=== PATIENT | female | born 1990 | race Caucasian/White ===

== ENCOUNTER 2022-08-15 10:16 | Emergency (ER) | payer OTHER ==
[~2022-08-15] VITALS: Ht 170.2 cm; Wt 59.0 kg
[2022-08-15] MEDS ORDERED: PEPCID AC20 MG PO (10:43)
[2022-08-15] MEDS ORDERED: DUI500 PO (10:43)
== END 2022-08-15 10:56 | disposition home or self-care (01) ==
LOC: ER 10:16
DX: L03.116 Cellulitis of left lower limb (principal)

== ENCOUNTER 2023-01-10 14:39 | Emergency (ER) | payer OTHER ==
[~2023-01-10] VITALS: Ht 167.6 cm; Wt 63.5 kg
[~2023-01-10 14:39] MED LIST: DUI500 PO; PEPCID AC20 MG PO
== END 2023-01-10 16:59 | disposition home or self-care (01) ==
LOC: ER 14:40
DX: R21 Rash and other nonspecific skin eruption (principal); L03.317 Cellulitis of buttock; Z91.018 Allergy to other foods

== ENCOUNTER 2023-10-25 17:30 | Emergency (ER) | payer OTHER ==
[~2023-10-25] VITALS: Ht 170.2 cm; Wt 63.5 kg
== END 2023-10-25 22:57 | disposition left against medical advice (07) ==
LOC: ER 17:31
DX: R68.84 Jaw pain (principal); Z88.8 Allergy status to other drugs, medicaments and biological substances

== ENCOUNTER 2024-04-06 08:09 | Outpatient (CLI) | payer OTHER | END 2024-04-06 08:17 | disposition home or self-care (01) | LOC: SONOGRAMA 08:09 | PROVIDERS: ATTEND General Practice | DX: N60.11 Diffuse cystic mastopathy of right breast (principal); N60.12 Diffuse cystic mastopathy of left breast; N64.0 Fissure and fistula of nipple; N63.0 Unspecified lump in unspecified breast ==